=== PATIENT | male | born 1960 | race Caucasian/White ===

== ENCOUNTER 2016-09-15 16:44 | Emergency (ER) | payer SELFPAY ==
[~2016-09-15] VITALS: Wt 64.0 kg
[2016-09-15] MEDS ORDERED: DIPHTH/TET/ACEL PERTUSS (ADULT) 0.5 ML VIAL IM* ONE (17:00)
--- NOTE | 2016-09-15 17:13 | ERD ---
ER Documentation Chief Complaint Date/Time DATE: 09/15/16 TIME: 17:11 Chief Complaint RIGHT FOOT PAIN AFTER PUNCTURE WOUND FROM A NAIL . NO BLEEDING HPI This 56-year-old male sustained a puncture wound of the nail on the bottom of his foot today. It was a very superficial puncture wound. Patient is comp that the entire nail came out. He is here because of concern he has diabetes and he might need treatment. He denies any restricted range of motion weakness or bleeding or lacerations or redness or discharge ROS All systems reviewed and are negative except as per history of present illness. PMhx/Soc Medical and Surgical Hx: pt denies Medical Hx, pt denies Surgical Hx Hx Alcohol Use: No Hx Substance Use: No Smoking Status: Never smoker Physical Exam Vitals Vital Signs Date Time Temp Pulse Resp B/P Pulse Ox O2 Delivery O2 Flow Rate FiO2 09/15/16 16:49 98.6 66 20 138/78 99 Physical Exam Const: [] Alert, [id number] Head: Atraumatic Eyes: Normal Conjunctiva ENT: Normal External Ears, Nose and Mouth. Neck: Full range of motion..~ No meningismus. Resp: Clear to auscultation bilaterally Cardio: Regular rate and rhythm, no murmurs Abd: Soft, non tender, non distended. Normal bowel sounds Skin: No petechiae or rashes. Very superficial puncture wound on the bottom of the right foot. There is no active bleeding in his does not appear to be through the dermis. No erythema or discharge restricted range of motion or weakness. There is no appreciable signs of possible foreign body. There is no bony tenderness. Back: No midline or flank tenderness Ext: No cyanosis, or edema Neur: Awake and alert Psych: Normal Mood and Affect Results 24 hrs Current Medications Medications (Trade) Dose Ordered Sig/Eris Route PRN Reason Start Time Stop Time Status Last Admin Dose Admin Diphtheria/ Tetanus/Acell Pertussis (Adacel) 0.5 ml ONCE ONCE IM* 09/15/16 17:00 09/15/16 17:01 DC Procedures/MDM Patient presents with a puncture wound above the right foot. There is no evidence of infection. Patient was given a tetanus booster. Patient does not have signs or symptoms to suggest fracture, foreign body or active infection. He will be treated with observation at home instructions for wound check in 2-3 days for redness, fevers, new worsening symptoms otherwise wound was dressed after cleaning patient was stable throughout the ED course Departure Diagnosis: Primary Impression: Puncture wound Condition: Stable Patient Instructions: Puncture Wound, Foot Additional Instructions: palomo woo 2 cooley si shad real, darcie hernandez, brandyn simlulú. SHA SYED MD Sep 15, 2016 17:13
== END 2016-09-15 17:30 | disposition home or self-care (01) ==
LOC: FTE 16:44
DX: S91.331A Puncture wound without foreign body, right foot, initial encounter (principal); W45.0XXA Nail entering through skin, initial encounter; Y92.9 Unspecified place or not applicable; Z23 Encounter for immunization
CPT/HCPCS: 90471; 90715